=== PATIENT | female | born 1970 | race Two or more races ===

== ENCOUNTER 2021-02-22 13:26 | Emergency (ER) | payer BC, OTHER ==
[~2021-02-22] VITALS: Ht 162.6 cm; Wt 106.6 kg
[2021-02-22] MEDS ORDERED: KETOROLAC TROMETH 60MG/2ML VIAL IM ONE (15:30)
[2021-02-22 16:00] VITALS: BP 164/89
== END 2021-02-22 16:20 | disposition home or self-care (01) ==
LOC: ER 13:37
DX: M54.5 Low back pain (principal); G89.29 Other chronic pain; I10 Essential (primary) hypertension
CPT/HCPCS: 93005; 96372; 99283; J1885

== ENCOUNTER 2023-07-28 17:29 | Inpatient (IN) | payer BC ==
[~2023-07-28] VITALS: Ht 160 cm; Wt 103.6 kg
[2023-07-28 22:03] LABS: Alanine Aminotransferase 35 U/L (7-40); Alkaline Phosphatase 83 U/L (46-116); Anion Gap 8 (5-15); Aspartate Aminotransferase 25 U/L (13-40); BUN/Creatinine Ratio 13.9 (10.0-20.0); Blood Urea Nitrogen 11 mg/dL (9-23); CRP High Sensitivity 0.65 mg/dL (<1.0); Calcium 9.9 mg/dL (8.5-10.1); Carbon Dioxide 27 mmol/L (20-30); Chloride 103 mmol/L (98-107); Glucose 152 mg/dL (74-106); Potassium 4.1 mmol/L (3.5-5.1); Sodium 138 mmol/L (136-145)
[2023-07-28 22:04] LABS: Albumin 4.5 g/dL (3.2-4.8); Basophils # (auto) 0.1 10 ^3/uL (0-0.2); Basophils % (auto) 0.7 % (0.0-2.0); Bilirubin, Total 0.7 mg/dL (0.2-1.0); Eosinophils # (auto) 0.1 10 ^3/uL (0-0.8); Eosinophils % (auto) 0.5 % (0.0-7.0); Hematocrit 42.7 % (36.0-46.0); Hemoglobin 14.2 g/dL (12.2-16.2); Lymphocytes # (auto) 2.8 10 ^3/uL (0.4-5.4); Lymphocytes % (auto) 28.3 % (10.0-50.0); Mean Corpuscular Hemoglobin 28.5 pg (28.0-32.0); Mean Corpuscular Hgb Conc. 33.3 g/dL (32.0-36.0); Mean Corpuscular Volume 85.6 fL (80.0-100.0); Monocytes # (auto) 0.5 10 ^3/uL (0-1.3); Monocytes % (auto) 4.6 % (0.0-12.0); Neutrophils # (auto) 6.4 10 ^3/uL (1.6-8.6); Neutrophils % (auto) 65.9 % (37.0-80.0); Nucleated Red Blood Cells % 0.1 %; Red Blood Cells 4.98 10^6/uL (4.0-5.20); Red Cell Distribution Width 14.5 % (11.8-14.3); Total Protein 7.9 g/dL (5.7-8.2); White Blood Cell 9.8 10^3/uL (4.4-10.8)
[2023-07-28 22:19] LABS: Lipase 68 U/L (12-53)
[2023-07-28 22:31] LABS: Erythrocyte Sedimentation Rate 25 mm/hr (0-20)
[2023-07-28 22:35] LABS: INR 1.07 (0.9-1.15); Partial Thromboplastin Time 28.5 SEC (24.5-34.5); Prothrombin Time 11.2 sec (9.3-11.8)
[2023-07-29] MEDS ORDERED: BENA-36 PO (04:42)
[2023-07-29] MEDS ORDERED: PANT40T PO (04:42)
[2023-07-29] MEDS ORDERED: GAB100C PO (04:42)
[2023-07-29] MEDS ORDERED: NAP500T PO (04:42)
[2023-07-29] MEDS ORDERED: ACETAMINOPHEN 325 MG TAB PO PRN (04:45)
[2023-07-29] MEDS ORDERED: NITROGLYCERIN 0.4 MG SL TAB SL PRN (04:45)
[2023-07-29] MEDS ORDERED: MORPHINE SULFATE INJ 2 MG/ml SYRG IV PRN ×2 (04:45)
[2023-07-29] MEDS ORDERED: HYDROcodone-ACET 5/325MG TAB PO PRN (04:45)
[2023-07-29 07:36] VITALS: TEMP 97.4
[2023-07-29] MEDS ORDERED: PATIENTS OWN MEDICATION (Benazepril Hcl 1 TAB) PO SCH (10:00)
[2023-07-29] MEDS ORDERED: GABAPENTIN 100 MG CAP PO SCH (10:00)
[2023-07-29] MEDS ORDERED: PANTOPRAZOLE 40 MG TAB PO SCH (10:00)
[2023-07-29] MEDS ORDERED: ENOXAPARIN SOD 100 MG/1 ML SYRINGE SC SCH (10:00)
[2023-07-29] MEDS ORDERED: BENAZEPRIL HCL 10 MG TAB PO SCH (10:00)
[2023-07-29] MEDS ORDERED: APIX5TAB PO (17:03)
[2023-07-29] MEDS ORDERED: APIXABAN 5 MG TAB PO ONE (17:15)
[2023-07-29 19:49] VITALS: BP 142/73; PULSE 82; RESP 18; O2SAT 97
== END 2023-07-29 19:50 | disposition home or self-care (01) | DRG 300 ==
LOC: ER 17:29 → OVERFLOW 07-29 04:41
PROVIDERS: ADMIT Nurse Practitioner; ATTEND Nurse Practitioner
DX: I82.412 Acute embolism and thrombosis of left femoral vein (principal); Z68.41 Body mass index [BMI] 40.0-44.9, adult; I10 Essential (primary) hypertension; E66.01 Morbid (severe) obesity due to excess calories; Z86.16 Personal history of COVID-19
CPT/HCPCS: 36415; 80053; 82010; 83690; 83735; 83880; 83930; 84443; 84484; 85025; 85610; 85652; 85730; 86141; 93970; 96372; G0378